=== PATIENT | female | born 1950 | race Caucasian/White ===

== ENCOUNTER 2017-05-08 16:14 | Inpatient (IN) | payer OTHER ==
[~2017-05-08] VITALS: Ht 160 cm; Wt 62.5 kg
[~2017-05-08 16:14] MED LIST: AMBI5TAB PO; FIORINAL2 PO; FISH1000 PO; OYST500T77 PO; TAB-TAB PO; THYR15 PO; ZINCLOZ8 PO
[2017-05-08] MEDS ORDERED: IOHEXOL 350 MG/ML 10 ML VIAL (for RAD DIAG) IVCONTRAST ONE (16:15)
[2017-05-08 16:28] VITALS: BP 120/56; PULSE 60; RESP 16; TEMP 98.8; O2SAT 97
[2017-05-08] MEDS ORDERED: THYR15 PO (16:37)
[2017-05-08] MEDS ORDERED: ENAL10TA PO (16:37)
[2017-05-08] MEDS ORDERED: SODIUM CHLORIDE 0.9% FLUSH 10 ML FLUSH IVF PRN (17:00)
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
[2017-05-08 17:30] VITALS: BP 115/56; PULSE 58; RESP 16; O2SAT 98
[2017-05-08 17:44] VITALS: RESP 16; O2SAT 98
[2017-05-08] MEDS ORDERED: MORPHINE SULFATE 4 MG/ML INJ IV PUSH ONE (18:30)
[2017-05-08] MEDS ORDERED: ONDANSETRON HCL 4 MG/2 ML VIAL IV PUSH ONE (18:30)
[2017-05-08 19:22] VITALS: BP 123/67; PULSE 62; RESP 18; O2SAT 97
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
[2017-05-08] MEDS ORDERED: ACETAMINOPHEN/HYDROcodone 325 MG/5 MG TAB PO ONE (20:00)
[2017-05-08] MEDS ORDERED: SODIUM CHLORIDE 0.9% FLUSH 10 ML FLUSH IV FLUSH PRN (20:15)
[2017-05-08] MEDS ORDERED: NALOXONE HCL 0.4 MG/ML AMP IV PUSH PRN (20:15)
[2017-05-08 21:20] VITALS: BP 187/72; PULSE 80; RESP 18; TEMP 96.8; O2SAT 92
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
[2017-05-08] MEDS ORDERED: LACTATED RINGER'S 1000 ML IV PRN (22:15)
[2017-05-08] MEDS ORDERED: CHLORHEXIDINE GLUCONATE 2 % 1 PACK (2 CLOTHS) TOPICAL PRN (22:15)
[2017-05-08] MEDS ORDERED: METOPROLOL TARTRATE 25 MG TAB PO PRN (22:15)
[2017-05-08] MEDS ORDERED: POVIDONE IODINE 5% (ANTISEPSIS KIT) 4 APPLICATIONS EACH NARE PRN (22:15)
[2017-05-08] MEDS ORDERED: SODIUM CHLORID 0.9% 500 ML IV PRN (22:15)
[2017-05-08] MEDS ORDERED: INSULIN HUMAN REGULAR 1,000 UNITS/10 ML VIAL SQ PRN (22:15)
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
[2017-05-08] MEDS: HYDROmorphone HCL PF 1 MG/ML VIAL IV PUSH PRN (22:39)
[2017-05-08] MEDS: ONDANSETRON HCL 4 MG/2 ML VIAL IV PUSH PRN (22:39)
[2017-05-08 23:06] VITALS: BP 158/70; PULSE 68; RESP 18; TEMP 97.2; O2SAT 95
[2017-05-09] VITALS (7 sets, daily range): BP systolic 105–158; BP diastolic 68–81; PULSE 60–68; RESP 16–18; TEMP 96.1–97.2; O2SAT 96–99
[2017-05-09] MEDS: SODIUM CHLOR 0.9% 1000 ML INJ 1,000 ML IV SCH ×2 (01:49→23:14)
[2017-05-09] MEDS: HYDROmorphone HCL PF 1 MG/ML VIAL IV PUSH PRN ×2 (01:50→06:40)
[2017-05-09] MEDS: SODIUM CHLORIDE 0.9% FLUSH 10 ML FLUSH IV FLUSH SCH ×3 (01:50→20:39)
[2017-05-09] MEDS: PANTOPRAZOLE SODIUM 40 MG VIAL IV PUSH SCH (04:16)
[2017-05-09] MEDS: ONDANSETRON HCL 4 MG/2 ML VIAL IV PUSH PRN ×2 (06:40→16:19)
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
[2017-05-09] MEDS ORDERED: CALCTAB19 PO (06:50)
[2017-05-09] MEDS ORDERED: WHEEMIS3 (06:50)
[2017-05-09] MEDS ORDERED: ERGO1CAP30 PO (06:50)
[2017-05-09] MEDS ORDERED: HYDR-3583 PO (06:50)
[2017-05-09] MEDS ORDERED: XARE10TA PO (06:50)
[2017-05-09] MEDS ORDERED: WALKER/ADULT/FO1 MIS (06:50)
[2017-05-09] MEDS ORDERED: VITA2000 PO (06:50)
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
[2017-05-09] MEDS: THYROID 15 MG TAB PO SCH (08:01)
[2017-05-09] MEDS ORDERED: PRIL20TA2 PO (08:02)
[2017-05-09 08:18] LABS: AUTOMATED NEUTROPHIL # 9.8 TH/MM3 (1.8-7.7); BASOPHIL % 0.1 % (0.0-2.0); EOSINOPHIL # 0.2 TH/MM3 (0-0.4); EOSINOPHIL % 1.4 % (0.0-4.0); HEMATOCRIT 37.3 % (35.0-46.0); HEMO FLAGS DIFF FINAL; LYMPH % 13.7 % (9.0-44.0); LYMPHOCYTE # 1.8 TH/MM3 (1.0-4.8); MEAN CELL VOLUME 90.7 FL (80.0-100.0); MEAN CORPUSCULAR HEMOGLOBIN 30.5 PG (27.0-34.0); MEAN CORPUSCULAR HGB CONC 33.6 % (32.0-36.0); MONO % 9.7 % (0.0-8.0); NEUT % 75.1 % (16.0-70.0); PLATELET COUNT 215 TH/MM3 (150-450); RED BLOOD COUNT 4.12 MIL/MM3 (4.00-5.30); RED CELL DISTRIBUTION WIDTH 13.9 % (11.6-17.2)
[2017-05-09 09:18] LABS: BICARBONATE 24.6 MEQ/L (21.0-32.0)
[2017-05-09] MEDS ORDERED: VANCOMYCIN HCL 1000 MG VIAL ONE (09:42)
[2017-05-09] MEDS ORDERED: GENTAMICIN SULFATE 80 MG/2 ML VIAL ONE (09:42)
[2017-05-09] MEDS ORDERED: INFLUENZA VIRUS VACCINE (QUADRIVALENT) 0.5 ML SYR IM ONE (10:00)
[2017-05-09] MEDS ORDERED: FAMOTIDINE 20 MG/2 ML VIAL ONE (10:02)
[2017-05-09] MEDS ORDERED: MIDAZOLAM HCL 2 MG/2 ML VIAL ONE (10:02)
[2017-05-09] MEDS ORDERED: DEXAMETHASONE SOD PHOS 4 MG/ML VIAL ONE (10:02)
[2017-05-09] MEDS ORDERED: ceFAZolin INJ 1,000 MG VIAL ONE (10:23)
[2017-05-09] MEDS: LACTATED RINGER'S 1000 ML INJ 1,000 ML IV SCH (11:35)
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
[2017-05-09] MEDS ORDERED: Post-op Orders (for Pharmacy) MISC XX ONE (11:45)
[2017-05-09] MEDS ORDERED: MORPHINE SULFATE 4 MG/ML INJ IV PUSH PRN (11:45)
[2017-05-09] MEDS ORDERED: SODIUM CHLORIDE 0.9% FLUSH 5 ML FLUSH IVF PRN (11:45)
[2017-05-09] MEDS ORDERED: diphenhydrAMINE HCL 25 MG CAP PO PRN (11:45)
[2017-05-09] MEDS ORDERED: DO NOT ADM ANY ANTICOAGULANT DRUGS PRN (11:52)
[2017-05-09] MEDS ORDERED: ePHEDrine/NS 25 MG/5 ML SYR IV ONE (12:00)
[2017-05-09] MEDS ORDERED: LIDOCAINE HCL 1% PF 5 ML AMPULE OTHER ONE (12:00)
[2017-05-09] MEDS ORDERED: PROPOFOL 200 MG/20 ML AMP IV ONE (12:00)
[2017-05-09] MEDS ORDERED: ONDANSETRON HCL 4 MG/2 ML VIAL IV PUSH ONE (12:00)
[2017-05-09] MEDS ORDERED: PHENYLEPH/NS 1000 MCG/10 ML SYR IV ONE (12:00)
[2017-05-09] MEDS ORDERED: *morphine SULFATE 8 MG/ML PERIprocedure ONLY ONE ×3 (12:07→12:39)
--- NOTE | 2017-05-09 12:18 | EKG ---
Date Performed: 05/08/2017 Time Performed: 19:19:34 PTAGE: 66 years EKG: Sinus rhythm RIGHT BUNDLE BRANCH BLOCK ABNORMAL ECG NO PREVIOUS TRACING DOCTOR: Beth Wolfe Interpretating Date/Time 05/09/2017 12:14:06
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
[2017-05-09] MEDS: CALCIUM/VITAMIN D 250 MG/125 U TAB PO SCH ×2 (15:02→18:00)
[2017-05-09] MEDS: ceFAZolin 2 GM PREMIX 50 ML IV SCH ×2 (15:02→23:13)
[2017-05-09] MEDS: KETOROLAC TROMETHAMINE 30 MG/ML (IVP) VIAL IVP SCH ×2 (15:02→20:58)
--- NOTE | 2017-05-09 15:43 | RADRPT ---
EXAM DATE/TIME: 05/09/2017 11:21 [facility] COMPARISON: No previous studies available for comparison. INDICATIONS : Right tibial plateau fracture repair. OR. MEDICAL HISTORY : None. SURGICAL HISTORY : None. ENCOUNTER: Initial ACUITY: 1 day PAIN SCORE: Non-responsive. LOCATION: Right tibia FINDINGS: For magnified C-arm spot views are centered over the knee joint and labeled right. An orthopedic plat e with anchoring screws is seen along the lateral cortex of the proximal tibia. Good alignment seen. Proximal fibula appears intact. CONCLUSION: Limited images as detailed above. Abdoulaye Bernal Jr., MD on May 09, 2017 at 15:41 Board Certified Radiologist. This report was verified electronically.
[2017-05-09] MEDS: ACETAMINOPHEN/HYDROcodone 325 MG/10 MG TAB PO PRN ×2 (16:39→21:03)
[2017-05-09 17:40] LABS: FREE T4 1.27 NG/DL (0.76-1.46)
[2017-05-09] MEDS: SODIUM CHLORIDE 0.9% FLUSH 5 ML FLUSH IVF SCH (20:58)
[2017-05-09] MEDS: DOCUSATE SODIUM 50 MG/SENNA 8.6 MG TAB PO SCH (20:58)
[2017-05-09] MEDS: VANCOMYCIN INJ 1,000 MG in SODIUM CHLOR 0.9% 250 ML INJ 250 ML IV SCH (23:14)
[2017-05-10] VITALS (7 sets, daily range): BP systolic 102–170; BP diastolic 66–84; PULSE 62–81; RESP 16–18; TEMP 96.4–99; O2SAT 93–98
[2017-05-10] MEDS: LACTATED RINGER'S 1000 ML INJ 1,000 ML IV SCH ×2 (00:05→11:17)
[2017-05-10] MEDS: PANTOPRAZOLE SODIUM 40 MG VIAL IV PUSH SCH (04:17)
[2017-05-10] MEDS: KETOROLAC TROMETHAMINE 30 MG/ML (IVP) VIAL IVP SCH (04:18)
[2017-05-10] MEDS: ceFAZolin 2 GM PREMIX 50 ML IV SCH ×3 (06:07→21:58)
[2017-05-10 06:21] LABS: HEMATOCRIT 32.8 % (35.0-46.0); REVIEW FLAG FINAL
--- NOTE | 2017-05-10 07:06 | PD.ORT.PN ---
Subjective Subjective Remarks Pain controlled with no new complaints. Stable Objective Vitals Vital Signs Date Time Temp Pulse Resp B/P (MAP) Pulse Ox O2 Delivery O2 Flow Rate FiO2 05/10/17 05:22 17 05/10/17 05:09 98.3 64 18 102/66 (78) 97 05/10/17 01:22 96.4 67 18 119/74 (89) 97 05/10/17 00:53 Room Air 05/09/17 22:06 17 05/09/17 21:05 97.0 65 16 118/68 (85) 97 05/09/17 20:00 62 05/09/17 16:00 97.2 62 18 105/69 (81) 99 05/09/17 13:26 96.1 68 16 120/77 (91) 99 05/09/17 13:00 71 16 115/53 (73) 98 Nasal Cannula 2 05/09/17 12:45 72 16 134/57 (82) 98 Nasal Cannula 2 05/09/17 12:30 70 16 144/65 (91) 98 Nasal Cannula 2 05/09/17 12:18 05/09/17 12:15 77 16 117/59 (78) 98 Nasal Cannula 2 05/09/17 12:00 71 16 114/58 (76) 94 Nasal Cannula 2 05/09/17 11:49 98.2 70 16 117/59 (78) 97 Nasal Cannula 2 05/09/17 08:49 97.1 63 18 134/72 (92) 96 05/09/17 08:01 64 I/O 05/09/17 05/09/17 05/09/17 05/10/17 05/10/17 05/10/17 07:00 15:00 23:00 07:00 15:00 23:00 Intake Total 115 ml 1000 ml 1050 ml Output Total 100 ml Balance 115 ml 900 ml 1050 ml Intake Oral 0 ml 0 ml IV Total 115 ml 100 ml 1050 ml Other 900 ml Output Urine Total 0 ml Estimated Blood Loss 100 ml # Voids 1 # Bowel Movements 0 Result Diagram: 05/10/17 0610 05/09/17 0715 Imaging Last 72 hours Impressions Tibia/Fibula X-Ray 05/09/17 0000 Signed Impressions: Service Date/Time: April 11:21 - CONCLUSION: Limited images as detailed above. Abdoulaye Bernal Jr., MD Head CT [id number]/08/171648 Signed Impressions: Service Date/Time: Monday, May 08, 2017 18:35 - CONCLUSION: Normal examination for a patient of this age. Anthony Cordoba MD Abdomen/Pelvis CT 05/08/171648 Signed Impressions: Service Date/Time: Monday, May 08, 2017 18:47 - CONCLUSION: 1. Single left kidney. Questionable tiny 2 mm left kidney stone without obstruction. 2. No acute pathology. Anthony Cordoba MD Lower Extremity CT 05/08/17 0000 Signed Impressions: Service Date/Time: Monday, May 08, 2017 22:02 - CONCLUSION: 1. Comminuted depressed fracture through the lateral tibial plateau 2. Nondisplaced fracture through the body of the patella 3. Large joint effusion. Anthony Cordoba MD Chest CT 05/08/17 0000 Signed Impressions: Service Date/Time: Monday, May 08, 2017 18:47 - CONCLUSION: 1. Bibasilar atelectasis. 2. No acute intrathoracic disease. 3. Incidental finding of a lipoma medial to the left scapula measuring 8.5 cm. Anthony Cordoba MD Cervical Spine CT 05/08/17 0000 Signed Impressions: Service Date/Time: Monday, May 08, 2017 18:35 - CONCLUSION: 1. No acute bony fracture. 2. Primary degenerative changes, disc degeneration and disc space narrowing throughout the cervical spine. 3. Broad based bulging with disc osteophyte complex at C5-6 and C6-7. Anthony Cordoba MD Last [address] 05/08/171648 Signed Impressions: Service Date/Time: Monday, May 08, 2017 18:35 - CONCLUSION: Normal examination for a patient of this age. Anthony Cordoba MD Abdomen/Pelvis CT 05/08/171648 Signed Impressions: Service Date/Time: Monday, May 08, 2017 18:47 - CONCLUSION: 1. Single left kidney. Questionable tiny 2 mm left kidney stone without obstruction. 2. No acute pathology. Anthony Cordoba MD Objective Remarks Right lower extremity: Immobilizer in place. Clean dry dressings intact. Intact sensation distally with good capillary refills. Active dorsal flexion plantar flexion of foot Left upper extremity complaints of pain through mid hand over metacarpals Assessment & Plan Assessment and Plan Right tibia plateau fracture status post open reduction internal fixation POD 1 with nondisplaced fracture of patella Nonweightbearing right lower extremity Knee immobilizer at all times except for PT for passive range of motion from 0- 45 No active leglifts or quad sets X-ray today of left hand to evaluate pain over metacarpals Continue walker training If unable to use a walker rehabilitation may be necessary Case management for discharge planning for rehabilitation versus home [place] follow-up Dr. Paul or [place] in 2 weeks Oz Martinez Jr. May 10, 2017 07:06
[2017-05-10] MEDS: THYROID 15 MG TAB PO SCH (07:49)
[2017-05-10] MEDS: CALCIUM/VITAMIN D 250 MG/125 U TAB PO SCH ×3 (07:49→18:00)
[2017-05-10] MEDS: DOCUSATE SODIUM 50 MG/SENNA 8.6 MG TAB PO SCH ×2 (07:49→21:56)
[2017-05-10] MEDS: SODIUM CHLORIDE 0.9% FLUSH 5 ML FLUSH IVF SCH (07:52)
[2017-05-10] MEDS: SODIUM CHLORIDE 0.9% FLUSH 10 ML FLUSH IV FLUSH SCH ×2 (07:53→21:56)
[2017-05-10] MEDS: ACETAMINOPHEN/HYDROcodone 325 MG/10 MG TAB PO PRN ×3 (08:55→21:57)
[2017-05-10] MEDS: ENOXAPARIN SODIUM 40 MG/0.4 ML SYRINGE SQ SCH (11:16)
[2017-05-10] MEDS: VANCOMYCIN INJ 1,000 MG in SODIUM CHLOR 0.9% 250 ML INJ 250 ML IV SCH ×2 (11:18→21:59)
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
[2017-05-10] MEDS: ONDANSETRON HCL 4 MG/2 ML VIAL IV PUSH PRN (14:30)
[2017-05-10] MEDS: SODIUM CHLOR 0.9% 1000 ML INJ 1,000 ML IV SCH (21:53)
[2017-05-11] VITALS: BP 95/55; PULSE 62; RESP 16; TEMP 98.6; O2SAT 98
[2017-05-11] MEDS: LACTATED RINGER'S 1000 ML INJ 1,000 ML IV SCH ×3 (00:12→21:03)
[2017-05-11] MEDS: ACETAMINOPHEN/HYDROcodone 325 MG/10 MG TAB PO PRN ×2 (02:12→06:30)
[2017-05-11 04:00] VITALS: BP 116/59; PULSE 57; RESP 16; TEMP 97.4; O2SAT 98
[2017-05-11] MEDS: PANTOPRAZOLE SODIUM 40 MG VIAL IV PUSH SCH (04:22)
[2017-05-11] MEDS: ceFAZolin 2 GM PREMIX 50 ML IV SCH (06:25)
[2017-05-11 08:00] VITALS: BP 104/67; PULSE 61; RESP 18; TEMP 99; O2SAT 98
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
[2017-05-11] MEDS: SODIUM CHLORIDE 0.9% FLUSH 10 ML FLUSH IV FLUSH SCH ×2 (09:00→21:02)
[2017-05-11] MEDS: BACITRACIN TOP OINT 15 GM TUBE TOPICAL SCH (09:00)
[2017-05-11] MEDS: ENOXAPARIN SODIUM 40 MG/0.4 ML SYRINGE SQ SCH (10:22)
[2017-05-11] MEDS: CALCIUM/VITAMIN D 250 MG/125 U TAB PO SCH ×3 (10:27→16:56)
[2017-05-11] MEDS: DOCUSATE SODIUM 50 MG/SENNA 8.6 MG TAB PO SCH ×2 (10:28→21:00)
[2017-05-11] MEDS: oxyCODONE/ACETAMINOPHEN 5 MG/325 MG TAB PO PRN ×2 (10:28→16:56)
[2017-05-11] MEDS: THYROID 15 MG TAB PO SCH (10:28)
[2017-05-11 12:00] VITALS: BP 101/66; PULSE 59; RESP 17; TEMP 96.9; O2SAT 96
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
[2017-05-11 16:00] VITALS: BP 118/72; PULSE 65; RESP 16; TEMP 98.4; O2SAT 99
[2017-05-11 20:00] VITALS: BP 124/69; PULSE 65; RESP 18; TEMP 99.7; O2SAT 96
[2017-05-11] MEDS: SODIUM CHLOR 0.9% 1000 ML INJ 1,000 ML IV SCH (21:02)
[2017-05-11] MEDS: ONDANSETRON HCL 4 MG/2 ML VIAL IV PUSH PRN (21:02)
[2017-05-12] VITALS: BP 103/64; PULSE 57; RESP 18; TEMP 98.6; O2SAT 96
[2017-05-12] MEDS: DOCUSATE SODIUM 50 MG/SENNA 8.6 MG TAB PO SCH ×3 (00:06→21:00)
[2017-05-12] MEDS: oxyCODONE/ACETAMINOPHEN 5 MG/325 MG TAB PO PRN ×3 (00:06→14:11)
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
[2017-05-12 04:00] VITALS: BP 101/62; PULSE 64; RESP 20; TEMP 98.4; O2SAT 96
[2017-05-12] MEDS: PANTOPRAZOLE SODIUM 40 MG VIAL IV PUSH SCH (05:41)
[2017-05-12] MEDS: ONDANSETRON HCL 4 MG/2 ML VIAL IV PUSH PRN (05:42)
[2017-05-12 07:46] VITALS: BP 130/73; PULSE 58; RESP 18; TEMP 98.1; O2SAT 98
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
[2017-05-12] MEDS ORDERED: platform walker (08:11)
[2017-05-12] MEDS ORDERED: OXYC1TAB63 PO (08:13)
[2017-05-12] MEDS: SODIUM CHLORIDE 0.9% FLUSH 10 ML FLUSH IV FLUSH SCH ×2 (09:00→21:00)
[2017-05-12] MEDS: BACITRACIN TOP OINT 15 GM TUBE TOPICAL SCH (09:00)
[2017-05-12] MEDS: THYROID 15 MG TAB PO SCH (09:36)
[2017-05-12] MEDS: CALCIUM/VITAMIN D 250 MG/125 U TAB PO SCH ×3 (09:36→17:32)
[2017-05-12 12:00] VITALS: BP 144/81; PULSE 72; RESP 18; TEMP 98.1; O2SAT 98
[2017-05-12] MEDS: ENOXAPARIN SODIUM 40 MG/0.4 ML SYRINGE SQ SCH (14:12)
[2017-05-12] MEDS: LACTATED RINGER'S 1000 ML INJ 1,000 ML IV SCH (14:35)
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
[2017-05-12 16:00] VITALS: BP 106/68; PULSE 72; RESP 18; TEMP 98.6; O2SAT 98
[2017-05-12] MEDS ORDERED: COMMODE 3-IN-11 MIS (16:19)
[2017-05-12] MEDS: ONDANSETRON ODT 4 MG TAB PO PRN (17:33)
[2017-05-12 20:30] VITALS: BP 156/80; PULSE 67; RESP 17; TEMP 96.8; O2SAT 99
[2017-05-12] MEDS: SODIUM CHLOR 0.9% 1000 ML INJ 1,000 ML IV SCH (21:31)
[2017-05-13 00:40] VITALS: BP 121/67; PULSE 67; RESP 17; TEMP 96.9; O2SAT 97
[2017-05-13] MEDS: LACTATED RINGER'S 1000 ML INJ 1,000 ML IV SCH (03:05)
[2017-05-13] MEDS: PANTOPRAZOLE SODIUM 40 MG VIAL IV PUSH SCH (04:00)
[2017-05-13] MEDS: THYROID 15 MG TAB PO SCH (05:08)
[2017-05-13] MEDS: ONDANSETRON ODT 4 MG TAB PO PRN (05:08)
[2017-05-13] MEDS: oxyCODONE/ACETAMINOPHEN 5 MG/325 MG TAB PO PRN ×2 (05:15→11:08)
--- NOTE | 2017-05-13 06:43 | PD.ORT.PN ---
Subjective Subjective Remarks POD 4 s/p right tibial plateau s/p right nondisplaced patella fx doing well. pain controlled. out of be with walker. Objective Vitals Vital Signs Date Time Temp Pulse Resp B/P (MAP) Pulse Ox O2 Delivery O2 Flow Rate FiO2 05/13/17 00:40 96.9 67 17 121/67 (85) 97 05/12/17 20:30 96.8 67 17 156/80 (105) 99 05/12/17 19:06 Room Air 05/12/17 16:00 98.6 72 18 106/68 (81) 98 05/12/17 12:00 98.1 72 18 144/81 (102) 98 05/12/17 10:37 16 05/12/17 07:46 98.1 58 18 130/73 (92) 98 I/O 05/12/17 05/12/17 05/12/17 05/13/17 05/13/17 05/13/17 07:00 15:00 23:00 07:00 15:00 23:00 Intake Total 720 ml 960 ml 360 ml Balance 720 ml 960 ml 360 ml Intake Oral 720 ml 960 ml 360 ml # Voids 3 4 2 # Bowel Movements 0 0 Result Diagram: 05/10/17 0610 05/09/17 0715 Imaging Last 72 hours Impressions Tibia/Fibula X-Ray 05/09/17 0000 Signed Impressions: Service Date/Time: April 11:21 - CONCLUSION: Limited images as detailed above. Abdoulaye Bernal Jr., MD Head CT [id number] Signed Impressions: Service Date/Time: Monday, May 08, 2017 18:35 - CONCLUSION: Normal examination for a patient of this age. Anthony Cordoba MD Abdomen/Pelvis CT [id number] Signed Impressions: Service Date/Time: Monday, May 08, 2017 18:47 - CONCLUSION: 1. Single left kidney. Questionable tiny 2 mm left kidney stone without obstruction. 2. No acute pathology. Anthony Cordoba MD Lower Extremity CT 05/08/17 0000 Signed Impressions: Service Date/Time: Monday, May 08, 2017 22:02 - CONCLUSION: 1. Comminuted depressed fracture through the lateral tibial plateau 2. Nondisplaced fracture through the body of the patella 3. Large joint effusion. Anthony Cordoba MD Chest CT 05/08/17 0000 Signed Impressions: Service Date/Time: Monday, May 08, 2017 18:47 - CONCLUSION: 1. Bibasilar atelectasis. 2. No acute intrathoracic disease. 3. Incidental finding of a lipoma medial to the left scapula measuring 8.5 cm. Anthony Cordoba MD Cervical Spine CT 05/08/17 0000 Signed Impressions: Service Date/Time: Monday, May 08, 2017 18:35 - CONCLUSION: 1. No acute bony fracture. 2. Primary degenerative changes, disc degeneration and disc space narrowing throughout the cervical spine. 3. Broad based bulging with disc osteophyte complex at C5-6 and C6-7. Anthony Cordoba MD Last [address] 05/08/17 1649 Signed Impressions: Service Date/Time: Monday, May 08, 2017 18:35 - CONCLUSION: Normal examination for a patient of this age. Anthony Cordoba MD Abdomen/Pelvis CT 05/08/17 1649 Signed Impressions: Service Date/Time: Monday, May 08, 2017 18:47 - CONCLUSION: 1. Single left kidney. Questionable tiny 2 mm left kidney stone without obstruction. 2. No acute pathology. Anthony Cordoba MD Objective Remarks RLE: +CKS. NVI. Neg jerry. dressings clean and dry. Assessment & Plan Assessment and Plan pod#4 s/p ORIF R tib plateau fx Nondisplaced R patella fracture Fracture left fourth metacarpal PT - Nonweightbearing right lower extremity Knee immobilizer at all times except for PT for passive range of motion from 0- 45. No active leglifts or quad sets. X-ray shows fracture left fourth metacarpal base Continue walker training. Will order platform walker for home Ulnar gutter splint Case management for discharge planning home Follow-up Dr. Paul or JENNY in 2 weeks ortho clear for discharge home today Pranay Andersen May 13, 2017 06:43
--- NOTE | 2017-05-13 06:44 | HHI.FF ---
Face to Face Verification Diagnosis: (1) Tibial plateau fracture, right Physical Therapy Gait training Knee: Knee fracture, Protocol: Right, Non weight bearing Canvas Knee Splint: Remove only with PT Right LE Weight Bearing: Non WB, No Strengthening, No Quad Sets Right LE Range of Motion: Passive ROM (0-45 deg) Occupational Therapy Left UE Weight Bearing: May use Platform Walker Nursing Dressing Changes: Daily dressing change (right knee), Clarence wrap, 4x4s, Xeroform I have seen patient Ev Al on 05/13/17. My clinical findings support the need for the requested home health care services because: Ltd mobility - disease progression I certify that my clinical findings support that this patient is homebound because: Post-op weakness Pranay Andersen May 13, 2017 06:44
[2017-05-13 08:00] VITALS: BP 119/64; PULSE 67; RESP 16; TEMP 98.1; O2SAT 98
[2017-05-13] MEDS: SODIUM CHLORIDE 0.9% FLUSH 10 ML FLUSH IV FLUSH SCH (09:00)
[2017-05-13] MEDS: CALCIUM/VITAMIN D 250 MG/125 U TAB PO SCH ×2 (09:14→11:07)
[2017-05-13] MEDS: DOCUSATE SODIUM 50 MG/SENNA 8.6 MG TAB PO SCH (09:14)
[2017-05-13] MEDS: BACITRACIN TOP OINT 15 GM TUBE TOPICAL SCH (09:15)
[2017-05-13] MEDS: ENOXAPARIN SODIUM 40 MG/0.4 ML SYRINGE SQ SCH (11:08)
[2017-05-13 12:00] VITALS: BP 99/68; PULSE 76; RESP 16; TEMP 96.3; O2SAT 99
[2017-05-13 12:10] VITALS: RESP 16
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
== END 2017-05-13 15:26 | disposition home health service (06) | DRG 493 ==
LOC: NEPE 16:14 → NEDA 20:15 → N06B 21:22
PROVIDERS: ADMIT Hospitalist; ATTEND Hospitalist
PROC: 0QSG04Z Reposition Right Tibia with Internal Fixation Device, Open Approach (ICD-10-PCS; principal; 2017-05-09 10:06)
DX: S82.141A Displaced bicondylar fracture of right tibia, initial encounter for closed fracture (principal); S82.034A Nondisplaced transverse fracture of right patella, initial encounter for closed fracture; I10 Essential (primary) hypertension; S62.315A Displaced fracture of base of fourth metacarpal bone, left hand, initial encounter for closed fracture; S20.212A Contusion of left front wall of thorax, initial encounter; S20.211A Contusion of right front wall of thorax, initial encounter; E03.9 Hypothyroidism, unspecified; R11.0 Nausea; V47.5XXA Car driver injured in collision with fixed or stationary object in traffic accident, initial encounter; Y92.410 Unspecified street and highway as the place of occurrence of the external cause; Z88.2 Allergy status to sulfonamides; Z88.8 Allergy status to other drugs, medicaments and biological substances
CPT/HCPCS: 70450; 71260; 72125; 73130; 73590; 73700; 74177; 76000; 80048; 84439; 84443; 85014; 85018; 85025; 93005; 94150; 96374; 96375; C1713; C9113; J0690; J1100; J1170; J1580; J1650; J1885; J2250; J2270; J2370; J2405; J3010; J3370; J7030; J7050; J7120; L1830; Q9967